=== PATIENT | female | born 1955 | race Caucasian/White ===

== ENCOUNTER 2019-12-03 01:32 | Inpatient (IN) | payer SELFPAY ==
[2019-12-03] MEDS ORDERED: METHYLPREDNISOLONE INJ 125 MG/2 ML SDV IV ONE (01:48)
[2019-12-03] MEDS ORDERED: IPRATROPIUM/ALBUTEROL 0.5-2.5 MG/3 ML AMPUL NEB ONE ×3 (01:48→05:14)
[2019-12-03] MEDS ORDERED: MAGNESIUM SULFATE/D5W 1 GM/100 ML RTUPB IV ONE ×2 (01:48→05:14)
[2019-12-03] MEDS ORDERED: NORMAL SALINE 500 ML IV ONE (01:49)
[2019-12-03 01:50] LABS: ABSOLUTE BASOPHILS # (AUTO) 0.1 10^3/uL (0.0-0.2); ABSOLUTE LYMPHOCYTES (AUTO) 2.9 10^3/uL (0.5-4.7); ABSOLUTE MONOCYTES (AUTO) 0.7 10^3/uL (0.1-1.4); ABSOLUTE NEUT (AUTO) 6.2 10^3/uL (1.7-8.2); BASOPHILS % (AUTO) 1.2 % (0-2); EOSINOPHILS % (AUTO) 9.2 % (0-6); HEMATOCRIT 36.9 % (36.0-47.0); HEMOGLOBIN 12.9 g/dL (12.0-15.5); LYMPHOCYTES % (AUTO) 26.3 % (13-45); MEAN CORPUSCULAR HEMOGLOBIN 31.7 pg (27.0-33.4); MEAN CORPUSCULAR VOLUME 91 fl (80-97); MONOCYTES % (AUTO) 6.3 % (3-13); PLATELET COUNT 307 10^3/uL (150-450); RED BLOOD COUNT 4.07 10^6/uL (3.72-5.28); TOTAL CELLS COUNTED % (AUTO) 100 %; WHITE BLOOD COUNT 10.9 10^3/uL (4.0-10.5)
--- NOTE | 2019-12-03 01:50 | ER Document Report ---
ED Respiratory Problem - General Chief Complaint: Shortness Of Breath Stated Complaint: RESPIRATORY DISTRESS Time Seen by Provider: 12/03/19 01:40 Primary Care Provider: RYAN CARNES [NO LOCAL MD] - Follow up as needed Notes: Patient is a 64-year-old female with a history of COPD and lung cancer that comes to the emergency department for chief complaint of difficulty breathing. She comes by EMS, was given 1 duoneb and 125 mg solu-medrol. She states that since yesterday she has had wheezing, shortness of breath, and this has worsened. She reports her baseline cough, denies fever, denies chest pain, denies vomiting, abdominal pain, or any other complaints. She states she is not currently on chemotherapy or radiation, she was diagnosed with cancer and has a follow-up tomorrow with her oncologist to determine her first treatment step. She is a former smoker. She is not on home oxygen. She states her home al buterol was not working. Patient states she was hospitalized within the past 2 weeks at [facility] including having a biopsy done and also having a "tube in my chest for an air pocket that was taken out the next day" (most likely a bleb). She has a small bandage over the left upper mid chest. She reports a remote history of DVT, is not on a blood thinner. Patient has been taking Doxycycline as well. - Related Data Allergies/Adverse Reactions: bupropion [From Wellbutrin] Allergy (Verified 12/03/19 01:36) codeine Allergy (Verified 12/03/19 01:36) Penicillins Allergy (Verified 12/03/19 01:36) Past Medical History - General Information source: Patient - Social History Smoking Status: Former Smoker Frequency of alcohol use: None Lives with: Family Family History: Reviewed & Not Pertinent Patient has homicidal ideation: No - Past Medical History Cardiac Medical History: Reports: Hx DVT Pulmonary Medical History: Reports: Hx COPD, Hx Pneumonia - Immunizations Immunizations up to date: Yes Hx Diphtheria, Pertussis, Tetanus Vaccination: Yes Review of Systems - Review of Systems Constitutional: No symptoms reported EENT: No symptoms reported Cardiovascular: See HPI Respiratory: See HPI Gastrointestinal: No symptoms reported Genitourinary: No symptoms reported Female Genitourinary: No symptoms reported Musculoskeletal: No symptoms reported Skin: No symptoms reported Hematologic/Lymphatic: No symptoms reported Neurological/Psychological: No symptoms reported Physical Exam - Vital signs Vitals: Temp 98.7 F 12/03/19 01:33 - Notes Notes: GENERAL: Alert, interacts well. HEAD: Normocephalic, atraumatic. EYES: Pupils equal, round, and reactive to light. Extraocular movements intact. ENT: Oral mucosa moist, tongue midline. Oropharynx unremarkable. Airway patent. NECK: Full range of motion. Supple. Trachea midline. No lymphadenopathy. LUNGS: Decreased breath sounds, borderline tachypnea, expiratory wheezes, occasional cough. No rales or rhonchi. HEART: Tachycardic, normal rhythm, no murmur ABDOMEN: Soft, non-tender. Non-distended. EXTREMITIES: Moves all 4 extremities spontaneously. No edema, normal radial and dorsalis pedis pulses bilaterally. No cyanosis. BACK: no cervical, thoracic, lumbar midline tenderness. No saddle anesthesia, normal distal neurovascular exam. Moves all extremities in full range of motion. NEUROLOGICAL: Alert and oriented x3. Normal speech. Cranial nerves II through XII grossly intact. Strength 5/5 in all extremities. PSYCH: Normal affect, normal mood. SKIN: Warm, dry, normal turgor. No rashes or lesions noted. Course - Re-evaluation Re-evalutation: On initial evaluation patient with decreased breath sounds, expiratory wheezes, mild tachypnea, borderline hypoxia. Initiating additional duo nebs, magnesium, patient will be closely reevaluated. CBC shows mild cytosis with elevation of eosinophils. Chemistry unremarkable, troponin is not elevated. Chest x-ray with possible mass in the right upper lung olmedo, this is consistent with patient's reported history. Based on this I do not see any acute findings. Patient reevaluated, she has now clear lung olmedo, appears significantly improved. However patient attempted to get up and ambulate, she became tachypneic, very tachycardic, could only walk a couple of steps before we sat her back down. Because she has clear lung olmedo, still has tachypnea and tachycardia, has a history of cancer reportedly along with remote history of DVT and no anticoagulation, discussed with patient, patient will have CTA performed. No previous records here. Patient discussed with Dr. Dash. Patient states agreement. CTA does show right-sided lung mass with lymph node involvement, no comparison to prior. Emphysema and acute bronchitis also noted. No blood clot or pneumonia. I discussed with patient again. She states she is hoping to be evaluated by her oncologist today because she is post to have reports on biopsies and additional imaging performed along with treatment plan laid out. She states she would prefer to be discharged to be seen by them today. However now patient has had resumed wheezing, tachypnea, coughing. She will require additional treatments and remaining magnesium. Because of recurrent symptoms, borderline hypoxia, obvious COPD exacerbation, patient unable to walk without severe respiratory distress, recommended admission. Patient is requesting transfer to [facility] for continuity of care by her oncologist. Discussed with Dr. Dash. I spoke with Dr. Díaz. His recommendation is that I speak with oncology who is coming in in the morning, consult will be placed for them to call me to discuss patient for potential transfer. If this is the re commendation/acceptance patient will be accepted to the hospital service. 12/03/19 06:50 Patient initially much improved after repeat therapies, now she is tachypneic, oxygen of 90%, expiratory wheezes, occasional coughing, she will be placed on BiPAP because of developing respiratory distress. 12/03/19 07:10 On BiPAP respiratory distress has resolved, patient is only borderline tachycardic now, hypoxia resolved, patient has no labored breathing or distress. Patient states she feels much improved and appears clinically much improved. Still waiting for callback. 12/03/19 07:15 Dr. Ramirez, oncology at [facility], called and spoke with me. I updated on patient's presentation, evaluation, work-up, CTA findings. He states that his only plan today was to perform an MRI of the brain and then he was going to lay out a treatment plan but no other interventions were planned at this time. He states patient did have a small pneumothorax and was treated with a chest tube that was removed the next day. He states he does not recommend transfer, he states she can be admitted here for COPD exacerbation and he will have her contacted by his group for additional management. 12/03/19 07:26 I spoke with patient and with daughter over the phone, they state understanding and agreement with plan of admission for COPD exacerbation here with continued care and follow-up with Dr. Ramirez later. 12/03/19 07:[address] Sharma, hospitalist, he accepts patient to IMCU for admission. - Vital Signs Vital signs: Temp Pulse Resp BP Pulse Ox 97.9 F 22 H 146/96 H 98 12/03/19 05:49 12/03/19 06:48 12/03/19 06:31 12/03/19 06:48 - Laboratory Result Diagrams: 12/03/19 01:36 12/03/19 01:36 Laboratory results interpreted by me: 12/03/19 12/03/19 12/03/19 01:36 01:36 03:10 WBC 10.9 H Eos % (Auto) 9.2 H Absolute Eos (auto) 1.0 H Glucose 127 H Total Protein 6.1 L Ur Leukocyte Esterase LARGE H Critical Care Note - Critical Care Note Total time excluding time spent on procedures (mins): 40 - COPD exacerbation, respiratory distress Comments: Please allow 40 minutes of critical care time for evaluation management of pat ient with COPD exacerbation and respiratory distress. Patient with multiple rounds of duo nebs, magnesium, oxygen therapy, and eventually BiPAP therapy for respiratory distress. Extended time spent performing multiple re-evaluations, discussing with hospitalist, discussing with oncology, admitting to IMCU. Discharge - Discharge Clinical Impression: COPD exacerbation, Difficulty breathing, Bronchogenic carcinoma of left lung, W heezing Condition: Stable Disposition: ADMITTED INPATIENT Admitting Provider: Zachary (Hospitalist) Unit Admitted: IMCU Referrals: DEYVI,NO [NO LOCAL MD] - Follow up as needed
[2019-12-03 02:07] LABS: ALBUMIN 3.7 g/dL (3.5-5.0); ALKALINE PHOSPHATASE 97 U/L (38-126); ANION GAP 6 (5-19); ASPARTATE AMINO TRANSFERASE 20 U/L (14-36); BILIRUBIN,TOTAL 0.3 mg/dL (0.2-1.3); BLOOD UREA NITROGEN 11 mg/dL (7-20); CALCIUM 9.3 mg/dL (8.4-10.2); CARBON DIOXIDE 25 mmol/L (22-30); CHLORIDE 106 mmol/L (98-107); CREATINE KINASE 46 U/L (30-135); GLUCOSE 127 mg/dL (75-110); POTASSIUM 3.9 mmol/L (3.6-5.0); TOTAL PROTEIN 6.1 g/dL (6.3-8.2)
[2019-12-03 02:24] LABS: CREATINE KINASE MB 1.99 ng/mL (<4.55)
[2019-12-03 02:25] LABS: TROPONIN I < 0.012 ng/mL
--- NOTE | 2019-12-03 03:54 | RADIOLOGY REPORT (SQ) ---
CHEST 1 VIEW on 12/03/2019 at 2:01 AM CLINICAL INDICATION: Chest tightness COMPARISON: None FINDINGS: There is medial left upper lobe opacity that may represent area of pneumonia but malignancy is also of concern. Would recommend follow-up chest CT with contrast to better evaluate. The lungs are otherwise clear. Heart is within normal limits for size. No bony abnormality is noted. IMPRESSION: Medial left upper lobe opacity that may represent area of pneumonia but malignancy is also of concern. Recommend follow-up chest CT with contrast to better evaluate.
[2019-12-03 04:06] LABS: VENOUS BLOOD PCO2 53.8 mmHg (35-63); VENOUS BLOOD PH 7.3 (7.30-7.42)
[2019-12-03 04:28] LABS: APPEARANCE,URINE CLEAR; BILIRUBIN,URINE NEGATIVE (NEGATIVE); COLOR,URINE STRAW; GLUCOSE, URINE NEGATIVE (NEGATIVE); KETONES,URINE NEGATIVE (NEGATIVE); LEUKOCYTE ESTERASE,URINE LARGE (NEGATIVE); NITRITE,URINE NEGATIVE (NEGATIVE); PROTEIN,URINE NEGATIVE (NEGATIVE); URINE SPECIFIC GRAVITY 1.003; UROBILINOGEN,URINE NEGATIVE mg/dL (<2.0)
--- NOTE | 2019-12-03 05:03 | RADIOLOGY REPORT (SQ) ---
CT angiogram chest with contrast on 12/03/2019 at 4:02 AM CLINICAL INDICATION: Shortness of breath, tachycardia, history of cancer, history of DVT TECHNIQUE: Multiple axial images are obtained throughout the chest following the administration of IV contrast. Computer generated 3D reconstructions/MIPS were performed. This exam was performed according to our departmental dose-optimization program, which includes automated exposure control, adjustment of the mA and/or kV according to patient size and/or use of iterative reconstruction technique. Total DLP is 508.08 mGy*cm. COMPARISON: None FINDINGS: There is an irregular spiculated mass in the medial left upper lobe consistent with a primary bronchogenic carcinoma. This measures approximately 4.7 x 3.5 x 3.7 cm. There is loss of fat plane between the mass and the mediastinum consistent with likely some mediastinal invasion. There is still fat plane between the aorta and the mass. There is no pleural or pericardial effusion. The patient is status post cholecystectomy. Limited visualized upper abdomen is unremarkable. Borderline sized prevascular, paratracheal and subcarinal lymph nodes are noted that could be reactive or malignant. The largest is a subcarinal lymph node measuring 1.8 x 0.7 cm on axial image 51. If clinically indicated PET CT could better evaluate. There is no thoracic aortic aneurysm or dissection. There are no filling defects within the pulmonary arteries to suggest pulmonary embolus. Emphysematous changes of the lungs are noted. There is some bronchial wall thickening suggesting bronchitis as well. Biapical pulmonary scarring is noted. The lungs are otherwise clear. Degenerative changes are noted in the spine. IMPRESSION: 1. Findings consistent with a 4.7 cm primary bronchogenic carcinoma in the medial left upper lobe with some likely mediastinal invasion. There are borderline sized mediastinal lymph nodes that could be metastatic. Please correlate with any prior imaging and if clinically indicated PET/CT could better evaluate. 2. No evidence of pulmonary embolus. 3. Emphysema with findings suggesting bronchitis as well.
[2019-12-03] MEDS ORDERED: METOPROLOL TARTRATE 25 MG TABLET PO ONE (05:14)
[2019-12-03] MEDS ORDERED: ALBUTEROL SULFATE 0.083% NEB 2.5 MG/3 ML AMPUL NEB ONE (06:48)
--- NOTE | 2019-12-03 08:02 | EKG REPORT ---
SEVERITY:- ABNORMAL ECG - SINUS TACHYCARDIA RIGHT ATRIAL ABNORMALITY BORDERLINE RIGHT AXIS DEVIATION : Confirmed by: Ezra Burgos 03-Dec-2019 08:01:38
[2019-12-03] MEDS ORDERED: LEVALBUTEROL HCL NEB 1.25 MG/3 ML AMPUL NEB PRN (08:29)
[2019-12-03] MEDS ORDERED: ONDANSETRON HCL INJ/PF 4 MG/2 ML SDV IV PRN (08:29)
[2019-12-03] MEDS ORDERED: ACETAMINOPHEN 325 MG TABLET PO PRN (08:29)
[2019-12-03] MEDS ORDERED: MAG HYDROX/AL HYDROX/SIMETH SUSP 30 ML UDCUP PO PRN (08:29)
[2019-12-03] MEDS ORDERED: AZITHROMYCIN INJ 500 MG VIAL IV ONE (08:37)
--- NOTE | 2019-12-03 08:54 | PDOC H&P ---
History of Present Illness Admission Date/PCP: 12/03/19 08:15 THAI SERRANO MD Patient complains of: SOB History of Present Illness: SUSHILA JORDAN is a 64 year old female with a history of lung mass likely cancer with recent biopsy done at [facility] about 1 to 2 weeks ago, COPD, hypertension, GERD, migraines, who presents to the hospital with complaints of shortness of breath x1 day. Dyspnea has significantly more than her baseline. She also admits to cough but without sputum production. Denies any fever or chills. States that she also has chest tightness which is now almost resolved after administration of nebulizers in the ER. She denies any sick contacts. She was at [facility] 2 weeks ago during which time lung mass in her left up per lobe was biopsied and she is meant to follow-up with the results today but was told that she likely has lung cancer. Apparently she was tested for COVID- 19 there which was negative. Noted to be wheezing in the ER with work of breathing and subsequently placed on BiPAP in the ER. Hospitalist service consulted for admission. Past Medical History Cardiac Medical History: Denies: Atrial Fibrillation, Congestive Heart Failure, Coronary Artery Disease, Myocardial Infarction Pulmonary Medical History: Reports: Chronic Obstructive Pulmonary Disease (COPD), Pneumonia Endocrine Medical History: Denies: Diabetes Mellitus Type 1, Diabetes Mellitus Type 2 Past Surgical History Past Surgical History: Reports: Cholecystectomy Social History Lives with: Family Smoking Status: Former Smoker Hx Recreational Drug Use: No - Advance Directive Resuscitation Status: Full Code Family History Family History: CAD, Hypertension Parental Family History Reviewed: Yes Children Family History Reviewed: NA Sibling(s) Family History Reviewed.: NA Medication/Allergy Allergies/Adverse Reactions: bupropion [From Wellbutrin] Allergy (Verified 12/03/19 01:36) codeine Allergy (Verified 12/03/19 01:36) Penicillins Allergy (Verified 12/03/19 01:36) Review of Systems Constitutional: ABSENT: chills, fever(s) Eyes: ABSENT: visual disturbances Nose, Mouth, and Throat: PRESENT: headache(s) Cardiovascular: ABSENT: edema, orthropnea Respiratory: PRESENT: cough, dyspnea. ABSENT: hemoptysis, sputum Gastrointestinal: PRESENT: heartburn. ABSENT: abdominal pain, nausea, vomiting Genitourinary: ABSENT: dysuria Integumentary: ABSENT: diaphoresis Neurological: ABSENT: dizziness Psychiatric: ABSENT: anxiety Endocrine: ABSENT: polyuria Allergic/Immunologic: PRESENT: other - denies rhinorrhea Physical Exam Vital Signs: Temp Pulse Resp BP Pulse Ox 97.9 F 22 H 133/83 H 96 12/03/19 05:49 12/03/19 08:15 12/03/19 08:15 12/03/19 08:15 Intake & Output 12/02/19 12/03/19 12/04/19 06:59 06:59 06:59 Intake Total 700 Balance 700 Weight 75.4 kg General appearance: PRESENT: no acute distress, cooperative Mouth exam: PRESENT: neck supple Neck exam: ABSENT: JVD Respiratory exam: PRESENT: symmetrical, tachypnea, unlabored, wheezes. ABSENT: accessory muscle use, retraction Cardiovascular exam: PRESENT: +S1, +S2, tachycardia. ABSENT: irregular rhythm GI/Abdominal exam: PRESENT: soft. ABSENT: rebound, rigid, tenderness Extremities exam: ABSENT: pedal edema Neurological exam: PRESENT: alert, awake, oriented to person, oriented to place, oriented to time Psychiatric exam: ABSENT: agitated, anxious Focused psych exam: ABSENT: pressured speech Skin exam: ABSENT: jaundice Results Laboratory Results: 12/03/19 01:36 12/03/19 01:36 12/03/19 12/03/19 12/03/19 01:36 01:36 03:10 WBC 10.9 H RBC 4.07 Hgb 12.9 Hct 36.9 MCV 91 MCH 31.7 MCHC 35.0 RDW 13.0 Plt Count 307 Seg Neutrophils % 57.0 VBG pH Cancelled VBG pCO2 Cancelled VBG HCO3 Cancelled VBG Base Excess Cancelled Sodium 137.2 Potassium 3.9 Chloride 106 Carbon Dioxide 25 Anion Gap 6 BUN 11 Creatinine 0.82 Est GFR ( Amer) > 60 Glucose 127 H Calcium 9.3 Total Bilirubin 0.3 AST 20 Alkaline Phosphatase 97 Total Protein 6.1 L Albumin 3.7 Urine Color Urine Appearance Urine pH Ur Specific [place] Urine Protein Urine Glucose (UA) Urine Ketones Urine Blood Urine Nitrite Ur Leukocyte Esterase Urine WBC (Auto) Urine RBC (Auto) 12/03/19 12/03/19 03:10 03:53 WBC RBC Hgb Hct MCV MCH MCHC RDW Plt Count Seg Neutrophils % VBG pH 7.30 VBG pCO2 53.8 VBG HCO3 26.0 VBG Base Excess -1.0 Sodium Potassium Chloride Carbon Dioxide Anion Gap BUN Creatinine Est GFR ( Amer) Glucose Calcium Total Bilirubin AST Alkaline Phosphatase Total Protein Albumin Urine Color STRAW Urine Appearance CLEAR Urine pH 6.0 Ur Specific [place] 1.003 Urine Protein NEGATIVE Urine Glucose (UA) NEGATIVE Urine Ketones NEGATIVE Urine Blood NEGATIVE Urine Nitrite NEGATIVE Ur Leukocyte Esterase LARGE H Urine WBC (Auto) 10 Urine RBC (Auto) 0 12/03/19 12/03/19 01:36 01:36 Creatine Kinase 46 CK-MB (CK-2) 1.99 Troponin I < 0.012 Impressions: Chest X-Ray 12/03/19 00:00 IMPRESSION: Medial left upper lobe opacity that may represent area of pneumonia but malignancy is also of concern. Recommend follow-up chest CT with contrast to better evaluate. Chest/Abdomen CTA 12/03/19 03:10 IMPRESSION: 1. Findings consistent with a 4.7 cm primary bronchogenic carcinoma in the medial left upper lobe with some likely mediastinal invasion. There are borderline sized mediastinal lymph nodes that could be metastatic. Please correlate with any prior imaging and if clinically indicated PET/CT could better evaluate. 2. No evidence of pulmonary embolus. 3. Emphysema with findings suggesting bronchitis as well. Assessment and Plan - Diagnosis (1) COPD exacerbation Is this a current diagnosis for this admission?: Yes Plan: Frequent nebulizer treatments, steroids IV, LABA/ICS. Azithromycin. CTA chest image reviewed by me which shows no pulmonary embolism and shows mass in left upper lobe Sinus tachycardia likely secondary to dyspnea. EKG showing sinus tach with incomplete right bundle branch block which I believe is probably from advanced pulmonary disease. (2) Acute respiratory failure with hypoxia Is this a current diagnosis for this admission?: Yes Plan: Patient was noted to be in significant respiratory distress with only mild hypoxia noted on vitals and was placed on a BiPAP for work of breathing. VBG shows no evidence of hypercapnia. Will admit patient to IMCU but de-escalate BiPAP therapy as tolerated as patient currently looks to be more comfortable. (3) Acute bronchitis Qualifiers: Bronchitis organism: unspecified organism Qualified Code(s): J20.9 - Acute bronchitis, unspecified Is this a current diagnosis for this admission?: Yes Plan: Check sputum culture. Supportive care. Pulmonary toileting. Azithromycin. (4) Mass of left lung Is this a current diagnosis for this admission?: Yes Plan: 4.7 cm lung mass noted in left upper lobe on CT scan. Patient states she was told she has lung cancer at [facility] where she was about 1 to 2 weeks ago during which time transthoracic biopsy was performed and she has been to be fo llowing up with the results today. Outpatient follow-up. (5) HTN (hypertension) Is this a current diagnosis for this admission?: Yes Plan: We will resume antihypertensive meds once medication reconciliation is confirmed. - Time Time Spent with patient: 35 or more minutes
[2019-12-03] MEDS ORDERED: AZITHROMYCIN 500 MG in DEXTROSE 5%-WATER 250 ML IV SCH (11:00)
[2019-12-03] MEDS: ENOXAPARIN SODIUM INJ 40 MG/0.4 ML DISP.SYRIN SUBCUT SCH (11:09)
[2019-12-03] MEDS: FLUTICASONE/VILANTEROL 200-25 MCG/DOSE IH SCH (11:10)
[2019-12-03] MEDS: PANTOPRAZOLE SODIUM 20 MG TABLET.DR PO SCH (11:10)
[2019-12-03] MEDS: IPRATROPIUM/ALBUTEROL 0.5-2.5 MG/3 ML AMPUL NEB SCH ×2 (13:56→20:22)
[2019-12-03] MEDS ORDERED: TRAZODONE HCL 50 MG TABLET PO PRN (14:18)
[2019-12-03] MEDS: METOPROLOL TARTRATE 25 MG TABLET PO SCH ×2 (16:42→22:48)
[2019-12-03] MEDS: MONTELUKAST SODIUM 10 MG TABLET PO SCH (18:25)
[2019-12-03] MEDS: TOPIRAMATE 25 MG TABLET PO SCH (18:25)
[2019-12-03] MEDS: DULOXETINE HCL 30 MG CAPSULE.DR PO SCH (18:25)
[2019-12-03] MEDS: ATORVASTATIN CALCIUM 10 MG TABLET PO SCH (22:47)
[2019-12-04] MEDS: IPRATROPIUM/ALBUTEROL 0.5-2.5 MG/3 ML AMPUL NEB SCH ×4 (02:22→20:07)
[2019-12-04] MEDS: PANTOPRAZOLE SODIUM 20 MG TABLET.DR PO SCH (05:54)
[2019-12-04 05:57] LABS: HEMATOCRIT 35.8 % (36.0-47.0); HEMOGLOBIN 12.3 g/dL (12.0-15.5); MEAN CORPUSCULAR HEMOGLOBIN 31.7 pg (27.0-33.4); MEAN CORPUSCULAR HGB CONC 34.5 g/dL (32.0-36.0); MEAN CORPUSCULAR VOLUME 92 fl (80-97); PLATELET COUNT 304 10^3/uL (150-450); RED BLOOD COUNT 3.89 10^6/uL (3.72-5.28); RED CELL DISTRIBUTION WIDTH 13.2 % (11.5-14.0)
[2019-12-04 06:14] LABS: ANION GAP 5 (5-19); BLOOD UREA NITROGEN 12 mg/dL (7-20); CALCIUM 8.8 mg/dL (8.4-10.2); CARBON DIOXIDE 26 mmol/L (22-30); CHLORIDE 104 mmol/L (98-107); GLUCOSE 108 mg/dL (75-110); PHOSPHORUS 3.4 mg/dL (2.5-4.5); POTASSIUM 4.4 mmol/L (3.6-5.0)
[2019-12-04] MEDS: AZITHROMYCIN 250 MG TABLET PO SCH (10:13)
[2019-12-04] MEDS: ENOXAPARIN SODIUM INJ 40 MG/0.4 ML DISP.SYRIN SUBCUT SCH (10:14)
[2019-12-04] MEDS: METOPROLOL TARTRATE 25 MG TABLET PO SCH ×2 (10:14→21:52)
[2019-12-04] MEDS: METHYLPREDNISOLONE INJ 40 MG/1 ML SDV IV SCH ×2 (10:14→21:53)
[2019-12-04] MEDS: FLUTICASONE/VILANTEROL 200-25 MCG/DOSE IH SCH (10:14)
--- NOTE | 2019-12-04 11:15 | PDOC PROGRESS REPORT ---
Subjective Progress Note for:: 12/04/19 Subjective:: Patient states she is feeling slightly better this morning. Unfortunately she missed her appointment with her right of way cutter to follow-up on a lung biopsy with a high probability of malignancy diagnosis Reason For Visit: COPD EXACERBATION Lung mass likely new cancer Physical Exam Vital Signs: Temp Pulse Resp BP Pulse Ox 98.1 F 97 18 138/74 H 98 12/04/19 03:36 12/04/19 08:50 12/04/19 08:50 12/04/19 03:36 12/04/19 08:50 Intake & Output 12/03/19 12/04/19 12/05/19 06:59 06:59 06:59 Intake Total 700 890 Output Total 0 Balance 700 890 Weight 75.4 kg 75.4 kg General appearance: PRESENT: no acute distress, cooperative, well-developed Head exam: PRESENT: atraumatic, normocephalic Ear exam: PRESENT: normal external ear exam. ABSENT: bleeding, drainage Respiratory exam: PRESENT: prolonged expiratory phas, symmetrical, unlabored, wheezes - Bilaterally mostly expiratory greater on the right. ABSENT: accessory muscle use, rales, rhonchi, tachypnea Cardiovascular exam: PRESENT: RRR, +S1, +S2. ABSENT: diastolic murmur, irregular rhythm, systolic murmur GI/Abdominal exam: PRESENT: normal bowel sounds, soft. ABSENT: distended, guarding, tenderness Rectal exam: PRESENT: deferred Gentrourinary exam: ABSENT: indwelling catheter Extremities exam: ABSENT: calf tenderness, pedal edema Neurological exam: PRESENT: alert, awake, oriented to person, oriented to place, oriented to time, oriented to situation, CN II-XII grossly intact. ABSENT: altered, motor sensory deficit Psychiatric exam: PRESENT: flat affect. ABSENT: agitated, anxious Focused psych exam: ABSENT: delusional, paranoid, restlessness Skin exam: PRESENT: normal color, warm. ABSENT: dry, rash Results Laboratory Results: 12/04/19 05:37 12/04/19 05:37 12/04/19 12/04/19 05:37 05:37 WBC 11.0 H RBC 3.89 Hgb 12.3 Hct 35.8 L MCV 92 MCH 31.7 MCHC 34.5 RDW 13.2 Plt Count 304 Sodium 135.3 L Potassium 4.4 Chloride 104 Carbon Dioxide 26 Anion Gap 5 BUN 12 Creatinine 0.64 Est GFR ( Amer) > 60 Glucose 108 Calcium 8.8 Phosphorus 3.4 12/03/19 12/03/19 01:36 01:36 Creatine Kinase 46 CK-MB (CK-2) 1.99 Troponin I < 0.012 Impressions: Chest X-Ray 12/03/19 00:00 IMPRESSION: Medial left upper lobe opacity that may represent area of pneumonia but malignancy is also of concern. Recommend follow-up chest CT with contrast to better evaluate. Chest/Abdomen CTA 12/03/19 03:10 IMPRESSION: 1. Findings consistent with a 4.7 cm primary bronchogenic carcinoma in the medial left upper lobe with some likely mediastinal invasion. There are borderline sized mediastinal lymph nodes that could be metastatic. Please correlate with any prior imaging and if clinically indicated PET/CT could better evaluate. 2. No evidence of pulmonary embolus. 3. Emphysema with findings suggesting bronchitis as well. Assessment and Plan - Diagnosis (1) Acute respiratory failure with hypoxia Is this a current diagnosis for this admission?: Yes Plan: Patient was noted to be in significant respiratory distress with only mild hypoxia noted on vitals and was placed on a BiPAP for work of breathing. VBG shows no evidence of hypercapnia. Will admit patient to IMCU but de-escalate BiPAP therapy as tolerated as patient currently looks to be more comfortable. 12/04/2019 Resting off of BiPAP today. Continue to wean oxygen to room air (2) COPD exacerbation Is this a current diagnosis for this admission?: Yes Plan: Frequent nebulizer treatments, steroids IV, LABA/ICS. Azithromycin. CTA chest image reviewed by me which shows no pulmonary embolism and shows mass in left upper lobe Sinus tachycardia likely secondary to dyspnea. EKG showing sinus tach with incomplete right bundle branch block which I believe is probably from advanced pulmonary disease. 12/04/2019 Continue inhaler/nebulizer regimen with oxygen support. Taper systemic steroids (3) Acute bronchitis Qualifiers: Bronchitis organism: unspecified organism Qualified Code(s): J20.9 - Acute bronchitis, unspecified Is this a current diagnosis for this admission?: Yes Plan: Check sputum culture. Supportive care. Pulmonary toileting. Azithromycin. 12/04/2019 Course of azithromycin (4) Mass of left lung Is this a current diagnosis for this admission?: Yes Plan: 4.7 cm lung mass noted in left upper lobe on CT scan. Patient states she was told she has lung cancer at [facility] where she was about 1 to 2 weeks ago during which time transthoracic biopsy was performed and she has been to be following up with the results today. Outpatient follow-up. 12/04/2019 Status post biopsy at [facility]. Had an appointment yesterday for follow- up. Will help her with rescheduling a post discharge. (5) HTN (hypertension) Qualifiers: Hypertension type: essential hypertension Qualified Code(s): I10 - Essential (primary) hypertension Is this a current diagnosis for this admission?: Yes Plan: We will resume antihypertensive meds once medication reconciliation is confirmed. 12/04/2019 Continue current medication regimen. Continue to monitor blood pressure through vital signs. - Time Time Spent with patient: 15-24 minutes Medications reviewed and adjusted accordingly: Yes Anticipated discharge: Home Within: within 48 hours
[2019-12-04] MEDS: MONTELUKAST SODIUM 10 MG TABLET PO SCH (17:10)
[2019-12-04] MEDS: DULOXETINE HCL 30 MG CAPSULE.DR PO SCH (17:10)
[2019-12-04] MEDS: TOPIRAMATE 25 MG TABLET PO SCH (17:10)
[2019-12-04] MEDS: ATORVASTATIN CALCIUM 10 MG TABLET PO SCH (21:52)
[2019-12-05] MEDS: IPRATROPIUM/ALBUTEROL 0.5-2.5 MG/3 ML AMPUL NEB SCH ×2 (02:43→08:09)
[2019-12-05] MEDS: PANTOPRAZOLE SODIUM 20 MG TABLET.DR PO SCH (06:57)
[2019-12-05] MEDS: METHYLPREDNISOLONE INJ 40 MG/1 ML SDV IV SCH (09:17)
[2019-12-05] MEDS: METOPROLOL TARTRATE 25 MG TABLET PO SCH (09:17)
[2019-12-05] MEDS: ENOXAPARIN SODIUM INJ 40 MG/0.4 ML DISP.SYRIN SUBCUT SCH (09:17)
[2019-12-05] MEDS: AZITHROMYCIN 250 MG TABLET PO SCH (09:17)
[2019-12-05] MEDS: FLUTICASONE/VILANTEROL 200-25 MCG/DOSE IH SCH (09:18)
--- NOTE | 2019-12-05 09:28 | PDOC DISCHARGE SUMMARY ---
Impression - Admit/DC Date/PCP Admission Date/Primary Care Provider: 12/03/19 08:15 THAI SERRANO MD Discharge Date: 12/05/19 - Discharge Diagnosis (1) Acute respiratory failure with hypoxia Is this a current diagnosis for this admission?: Yes (2) COPD exacerbation Is this a current diagnosis for this admission?: Yes (3) Acute bronchitis Is this a current diagnosis for this admission?: Yes (4) Mass of left lung Is this a current diagnosis for this admission?: Yes (5) HTN (hypertension) Is this a current diagnosis for this admission?: Yes - Additional Information Resuscitation Status: Full Code Discharge Diet: Cardiac Discharge Activity: Activity As Tolerated Referrals: LOCALMD,NO [NO LOCAL MD] - Follow up as needed Prescriptions: Azithromycin 500 mg PO DAILY #3 tablet Prednisone [Deltasone 20 mg Tablet] 20 mg PO ASDIR #9 tablet Home Medications: Acetaminophen [Tylenol 325 mg Tablet] 650 mg PO Q4HP PRN 12/03/19 Albuterol Sulfate [Proair HFA Inhalation Aerosol 8.5 gm MDI] 2 puff IH Q4HP PRN 12/03/19 Atorvastatin Calcium [Lipitor 10 mg Tablet] 10 mg PO QHS 12/03/19 Duloxetine HCl [Cymbalta] 60 mg PO QPM 12/03/19 Glycopyrrolate/Formoterol Fum [Bevespi Aerosphere Inhaler] 2 puff IH BID 12/03/19 Metoprolol Tartrate [Lopressor 25 mg Tablet] 25 mg PO BID 12/03/19 Montelukast Sodium [Singulair 10 mg Tablet] 10 mg PO QPM 12/03/19 Topiramate [Topamax 25 mg Tablet] 25 mg PO QPM 12/03/19 Trazodone HCl 150 mg PO HSP PRN 12/03/19 Azithromycin 500 mg PO DAILY #3 tablet 12/05/19 Fluticasone/Vilanterol [Breo 200-25 Mcg Ellipta 14 Dose/Dpi] 1 inh IH DAILY inhaler 12/05/19 Ipratropium/Albuterol Sulfate [Duoneb 3 ml Ampul] 3 ml NEB RTQ6 vial.neb 04/15 Prednisone [Deltasone 20 mg Tablet] 20 mg PO ASDIR #9 tablet 12/05/19 History of Present Illiness History of Present Illness: SUSHILA JORDAN is a 64 year old female with a history of lung mass likely cancer with recent biopsy done at [facility] about 1 to 2 weeks ago, COPD, hypertension, GERD, migraines, who presents to the hospital with complaints of shortness of breath x1 day. Dyspnea has significantly more than her baseline. She also admits to cough but without sputum production. Denies any fever or chills. States that she also has chest tightness which is now almost resolved after administration of nebulizers in the ER. She denies any sick contacts. She was at [facility] 2 weeks ago during which time lung mass in her left upper lobe was biopsied and she is meant to follow-up with the results today but was told that she likely has lung cancer. Apparently she was tested for COVID- 19 there which was negative. Noted to be wheezing in the ER with work of breathing and subsequently placed on BiPAP in the ER. Hospitalist service consulted for admission. Hospital Course Hospital Course: (1) Acute respiratory failure with hypoxia Is this a current diagnosis for this admission?: Yes Plan: Patient was noted to be in significant respiratory distress with only mild hypoxia noted on vitals and was placed on a BiPAP for work of breathing. VBG shows no evidence of hypercapnia. Will admit patient to IMCU but de-escalate BiPAP therapy as tolerated as patient currently looks to be more comfortable. 12/04/2019 Resting off of BiPAP today. Continue to wean oxygen to room air 12/05/2019 Back on room air. (2) COPD exacerbation Is this a current diagnosis for this admission?: Yes Plan: Frequent nebulizer treatments, steroids IV, LABA/ICS. Azithromycin. CTA chest image reviewed by me which shows no pulmonary embolism and shows mass in left upper lobe Sinus tachycardia likely secondary to dyspnea. EKG showing sinus tach with incomplete right bundle branch block which I believe is probably from advanced pulmonary disease. 12/04/2019 Continue inhaler/nebulizer regimen with oxygen support. Taper systemic steroids 12/05/2019 Finish the Brio inhaler and then return to her Bevespi. Rapid steroid taper. (3) Acute bronchitis Qualifiers: Bronchitis organism: unspecified organism Qualified Code(s): J20.9 - Acute bronchitis, unspecified Is this a current diagnosis for this admission?: Yes Plan: Check sputum culture. Supportive care. Pulmonary toileting. Azithromycin. 12/04/2019 Course of azithromycin 12/05/2019 3 more days of azithromycin 500 mg daily (4) Mass of left lung Is this a current diagnosis for this admission?: Yes Plan: 4.7 cm lung mass noted in left upper lobe on CT scan. Patient states she was told she has lung cancer at [facility] where she was about 1 to 2 weeks ago during which time transthoracic biopsy was performed and she has been to be following up with the results today. Outpatient follow-up. 12/04/2019 Status post biopsy at [facility]. Had an appointment yesterday for follow- up. Will help her with rescheduling a post discharge. 12/05/2019 Follow-up at [facility] (5) HTN (hypertension) Qualifiers: Hypertension type: essential hypertension Qualified Code(s): I10 - Essential (primary) hypertension Is this a current diagnosis for this admission?: Yes Plan: We will resume antihypertensive meds once medication reconciliation is confirmed. 12/04/2019 Continue current medication regimen. Continue to monitor blood pressure through vital signs. 12/05/2019 Continue home medication regimen Physical Exam Vital Signs: Temp Pulse Resp BP Pulse Ox 97.8 F 100 14 135/80 H 96 12/05/19 07:35 12/05/19 08:09 12/05/19 08:09 12/05/19 07:35 12/05/19 08:09 Intake & Output 12/04/19 12/05/19 12/06/19 06:59 06:59 06:59 Intake Total 890 1216 Output Total 0 3 Balance 890 1213 Weight 75.4 kg 74.2 kg General appearance: PRESENT: no acute distress, cooperative, well-developed Head exam: PRESENT: atraumatic, normocephalic Respiratory exam: PRESENT: clear to auscultation gerardo, symmetrical, unlabored. ABSENT: prolonged expiratory phas, rales, rhonchi, tachypnea, wheezes Cardiovascular exam: PRESENT: RRR, +S1, +S2 GI/Abdominal exam: PRESENT: normal bowel sounds, soft. ABSENT: distended, guarding, tenderness Neurological exam: PRESENT: alert, awake, oriented to person, oriented to place, oriented to time, oriented to situation, CN II-XII grossly intact. ABSENT: altered Psychiatric exam: PRESENT: flat affect. ABSENT: agitated, anxious Focused psych exam: ABSENT: delusional, paranoid, restlessness Skin exam: PRESENT: dry, normal color, warm. ABSENT: rash Results Laboratory Results: WBC 11.0 10^3/uL (4.0-10.5) H 12/04/19 05:37 RBC 3.89 10^6/uL (3.72-5.28) 12/04/19 05:37 Hgb 12.3 g/dL (12.0-15.5) 12/04/19 05:37 Hct 35.8 % (36.0-47.0) L 12/04/19 05:37 MCV 92 fl (80-97) 12/04/19 05:37 MCH 31.7 pg (27.0-33.4) 12/04/19 05:37 MCHC 34.5 g/dL (32.0-36.0) 12/04/19 05:37 RDW 13.2 % (11.5-14.0) 12/04/19 05:37 Plt Count 304 10^3/uL (150-450) 12/04/19 05:37 Lymph % (Auto) 26.3 % (13-45) 12/03/19 01:36 [place] % (Auto) 6.3 % (3-13) 12/03/19 01:36 Eos % (Auto) 9.2 % (0-6) H 12/03/19 01:36 Baso % (Auto) 1.2 % (0-2) 12/03/19 01:36 Absolute Neuts (auto) 6.2 10^3/uL (1.7-8.2) 12/03/19 01:36 Absolute Lymphs (auto) 2.9 10^3/uL (0.5-4.7) 12/03/19 01:36 Absolute Monos (auto) 0.7 10^3/uL (0.1-1.4) 12/03/19 01:36 Absolute Eos (auto) 1.0 10^3/uL (0.0-0.6) H 12/03/19 01:36 Absolute Basos (auto) 0.1 10^3/uL (0.0-0.2) 12/03/19 01:36 Seg Neutrophils % 57.0 % (42-78) 12/03/19 01:36 VBG pH 7.30 (7.30-7.42) 12/03/19 03:53 VBG pCO2 53.8 mmHg (35-63) 12/03/19 03:53 VBG HCO3 26.0 mmol/L (20-32) 12/03/19 03:53 VBG Base Excess -1.0 mmol/L 12/03/19 03:53 Sodium 135.3 mmol/L (137-145) L 12/04/19 05:37 Potassium 4.4 mmol/L (3.6-5.0) 12/04/19 05:37 Chloride 104 mmol/L (98-107) 12/04/19 05:37 Carbon Dioxide 26 mmol/L (22-30) 12/04/19 05:37 Anion Gap 5 (5-19) 12/04/19 05:37 BUN 12 mg/dL (7-20) 12/04/19 05:37 Creatinine 0.64 mg/dL (0.52-1.25) 12/04/19 05:37 Est GFR ( Amer) > 60 (>60) 12/04/19 05:37 Est GFR (MDRD) Non-Af > 60 (>60) 12/04/19 05:37 Glucose 108 mg/dL (75-110) 12/04/19 05:37 Calcium 8.8 mg/dL (8.4-10.2) 12/04/19 05:37 Phosphorus 3.4 mg/dL (2.5-4.5) 12/04/19 05:37 Total Bilirubin 0.3 mg/dL (0.2-1.3) 12/03/19 01:36 Direct Bilirubin 0.0 mg/dL (0.0-0.4) 12/03/19 01:36 Neonat Total Bilirubin Not Reportable 12/03/19 01:36 Neonat Direct Bilirubin Not Reportable 12/03/19 01:36 Neonat Indirect Bili Not Reportable 12/03/19 01:36 AST 20 U/L (14-36) 12/03/19 01:36 ALT 17 U/L (<35) 12/03/19 01:36 Alkaline Phosphatase 97 U/L (38-126) 12/03/19 01:36 Creatine Kinase 46 U/L (30-135) 12/03/19 01:36 CK-MB (CK-2) 1.99 ng/mL (<4.55) 12/03/19 01:36 Troponin I < 0.012 ng/mL 12/03/19 01:36 Total Protein 6.1 g/dL (6.3-8.2) L 12/03/19 01:36 Albumin 3.7 g/dL (3.5-5.0) 12/03/19 01:36 Urine Color STRAW 12/03/19 03:10 Urine Appearance CLEAR 12/03/19 03:10 Urine pH 6.0 (5.0-9.0) 12/03/19 03:10 Ur Specific [place] 1.003 12/03/19 03:10 Urine Protein NEGATIVE mg/dL (NEGATIVE) 12/03/19 03:10 Urine Glucose (UA) NEGATIVE mg/dL (NEGATIVE) 12/03/19 03:10 Urine Ketones NEGATIVE mg/dL (NEGATIVE) 12/03/19 03:10 Urine Blood NEGATIVE (NEGATIVE) 12/03/19 03:10 Urine Nitrite NEGATIVE (NEGATIVE) 12/03/19 03:10 Urine Bilirubin NEGATIVE (NEGATIVE) 12/03/19 03:10 Urine Urobilinogen NEGATIVE mg/dL (<2.0) 12/03/19 03:10 Ur Leukocyte Esterase LARGE (NEGATIVE) H 12/03/19 03:10 Urine WBC (Auto) 10 /HPF 12/03/19 03:10 Urine RBC (Auto) 0 /HPF 12/03/19 03:10 Squamous Epi Cells Auto 1 /HPF 12/03/19 03:10 Urine Mucus (Auto) RARE /LPF 12/03/19 03:10 Urine Ascorbic Acid NEGATIVE (NEGATIVE) 12/03/19 03:10 12/03/19 01:36 CK-MB (CK-2) 1.99 Troponin I < 0.012 Impressions: Chest X-Ray 12/03/19 00:00 IMPRESSION: Medial left upper lobe opacity that may represent area of pneumonia but malignancy is also of concern. Recommend follow-up chest CT with contrast to better evaluate. Chest/Abdomen CTA 12/03/19 03:10 IMPRESSION: 1. Findings consistent with a 4.7 cm primary bronchogenic carcinoma in the medial left upper lobe with some likely mediastinal invasion. There are borderline sized mediastinal lymph nodes that could be metastatic. Please correlate with any prior imaging and if clinically indicated PET/CT could better evaluate. 2. No evidence of pulmonary embolus. 3. Emphysema with findings suggesting bronchitis as well. Plan Health Concerns: Probable diagnosis of new lung cancer Plan of Treatment: Complete azithromycin Rapid prednisone taper After Brio Ellipta inhaler is finished resume Bevespi Nebulizer treatments as needed Follow-up at [facility] Goals: Established diagnosis of lung mass and embark on treatment plan Time Spent: Greater than 30 Minutes Stroke Is this a Stroke Patient?: No Acute Heart Failure - Is this a Heart Failure Patient?: No
[2019-12-05 09:37] VITALS: BP 138/74
== END 2019-12-05 10:25 | disposition home or self-care (01) | DRG 189 ==
LOC: ER 01:32 → EH 08:15 → 3S 09:45
PROVIDERS: ADMIT Internal Medicine; ATTEND Hospitalist
DX: J96.01 Acute respiratory failure with hypoxia (principal); C34.92 Malignant neoplasm of unspecified part of left bronchus or lung; J43.9 Emphysema, unspecified; I10 Essential (primary) hypertension; K21.9 Gastro-esophageal reflux disease without esophagitis; G43.909 Migraine, unspecified, not intractable, without status migrainosus; Z87.891 Personal history of nicotine dependence; Z86.718 Personal history of other venous thrombosis and embolism
CPT/HCPCS: 36415; 71045; 71275; 80048; 80053; 81001; 82550; 82553; 82803; 84100; 84484; 85025; 85027; 87086; 93005; 93010; 94640; 94660; 96365; 96366; 99291; J0456; J1650; J2920; J3475; J3490; J7040; J7060; J7620